=== PATIENT | male | born 1995 | race Caucasian/White ===

== ENCOUNTER → 2019-09-13 | Outpatient (REF) | payer BC | LOC: M SFHCLERA 16:03 | PROVIDERS: ATTEND Nurse Practitioner Family | DX: R53.81 Other malaise (principal) ==

== ENCOUNTER 2020-03-24 14:00 | Emergency (ER) | payer BC ==
[~2020-03-24] VITALS: Ht 188 cm; Wt 89.8 kg
[2020-03-24 14:01] VITALS: BP 130/70
[2020-03-24] MEDS ORDERED: BOOSTRIX/ADACEL VACCINE (DIPHTH/PERTUSS/ACELL/TETANUS) 0.5ML SYR IM ONE (14:30)
[2020-03-24] MEDS ORDERED: BACITRACIN OINTMENT 30GM TUBE TOP ONE (14:45)
== END 2020-03-24 15:03 | disposition home or self-care (01) ==
LOC: M ED 14:00
DX: T23.251A Burn of second degree of right palm, initial encounter (principal); T23.252A Burn of second degree of left palm, initial encounter; T24.221A Burn of second degree of right knee, initial encounter; T24.222A Burn of second degree of left knee, initial encounter; T31.10 Burns involving 10-19% of body surface with 0% to 9% third degree burns; X03.0XXA Exposure to flames in controlled fire, not in building or structure, initial encounter; W01.198A Fall on same level from slipping, tripping and stumbling with subsequent striking against other object, initial encounter; Y92.096 Garden or yard of other non-institutional residence as the place of occurrence of the external cause; Z23 Encounter for immunization